=== PATIENT | female | born 1950 | race Caucasian/White ===

== ENCOUNTER → 2018-06-25 07:50 | Outpatient (CLI) | payer OTHER, SELFPAY ==
--- NOTE | 2018-06-25 | DI.MG.S_ITS ---
BILATERAL DIGITAL SCREENING MAMMOGRAM 3D/2D WITH CAD: 06/25/2018 CLINICAL: Routine screening. Family history of breast cancer. Comparison is made to exams dated: 07/13/2016 mammogram, 07/11/2013 mammogram, and 12/15/2009 mammogram - [facility]. There are scattered fibroglandular elements in both breasts. Current study was also evaluated with a Computer Aided Detection (CAD) system. No significant masses, calcifications, or other findings are seen in either breast. There has been no significant interval change. IMPRESSION: NEGATIVE There is no mammographic evidence of malignancy. A 1 year screening mammogram is recommended. This exam was interpreted at Station ID: [id number]. NOTE: For mammograms, a report in lay terms will be sent to the patient. Approximately 15% of breast malignancies will not be visualized mammographically. In the management of a palpable breast mass, a negative mammogram must not discourage biopsy of a clinically suspicious lesion. Electronically Signed By: Doris moreland/sarika:06/26/2018 09:44:15 letter sent: Normal Exam ACR BI-RADS Category 1: Negative 3341F
== END ==
PROVIDERS: Family Provider Family Medicine; PCP Family Medicine; Visit Provider Family Medicine
DX: Z12.31 Encounter for screening mammogram for malignant neoplasm of breast (principal); Z80.3 Family history of malignant neoplasm of breast
CPT/HCPCS: 77063; 77067

== ENCOUNTER → 2019-08-14 09:36 | Outpatient (CLI) | payer OTHER, SELFPAY | PROVIDERS: Family Provider Family Medicine; PCP Family Medicine; Referring Provider Family Medicine; Visit Provider Family Medicine | DX: M85.851 Other specified disorders of bone density and structure, right thigh (principal); Z78.0 Asymptomatic menopausal state; Z87.891 Personal history of nicotine dependence | CPT/HCPCS: 77080 ==

== ENCOUNTER → 2020-01-07 06:48 | Outpatient (CLI) | payer OTHER, SELFPAY | PROVIDERS: Family Provider Family Medicine; PCP Family Medicine; Referring Provider Family Medicine; Visit Provider Family Medicine | DX: I34.0 Nonrheumatic mitral (valve) insufficiency (principal); I77.89 Other specified disorders of arteries and arterioles | CPT/HCPCS: 93306 ==

== ENCOUNTER → 2020-06-27 08:00 | Outpatient (CLI) | payer OTHER, SELFPAY ==
--- NOTE | 2020-06-27 | DI.MG.S_ITS ---
BILATERAL DIGITAL SCREENING MAMMOGRAM 3D/2D WITH CAD: 06/27/2020 CLINICAL: Routine screening. Family history of breast cancer. Comparison is made to exams dated: 06/25/2018 mammogram, 07/13/2016 mammogram, and 07/11/2013 mammogram - [facility]. There are scattered fibroglandular elements in both breasts. Current study was also evaluated with a Computer Aided Detection (CAD) system. No significant masses, calcifications, or other findings are seen in either breast. There has been no significant interval change. IMPRESSION: NEGATIVE There is no mammographic evidence of malignancy. A 1 year screening mammogram is recommended. This exam was interpreted at Station ID: [id number]. NOTE: For mammograms, a report in lay terms will be sent to the patient. Approximately 15% of breast malignancies will not be visualized mammographically. In the management of a palpable breast mass, a negative mammogram must not discourage biopsy of a clinically suspicious lesion. Electronically Signed By: Luke coto/sarika:06/29/2020 07:13:34 letter sent: Normal Exam ACR BI-RADS Category 1: Negative 3341F
== END ==
PROVIDERS: Family Provider Family Medicine; PCP Family Medicine; Referring Provider Family Medicine; Visit Provider Family Medicine
DX: Z12.31 Encounter for screening mammogram for malignant neoplasm of breast (principal); Z80.3 Family history of malignant neoplasm of breast
CPT/HCPCS: 77063; 77067

== ENCOUNTER → 2020-12-02 09:39 | Outpatient (CLI) | payer OTHER, SELFPAY ==
[2020-12-02 12:12] LABS: COVID19 -Nasal RAPID Negative (Negative)
== END ==
PROVIDERS: Family Provider Family Medicine; PCP Family Medicine; Visit Provider Physician Assistant
DX: Z01.812 Encounter for preprocedural laboratory examination (principal); Z20.822 Contact with and (suspected) exposure to COVID-19
CPT/HCPCS: 87635

== ENCOUNTER 2020-12-03 09:00 | Day surgery (SDC) | payer OTHER, SELFPAY ==
--- NOTE | 2020-12-03 | PATH_ITS ---
[facility] Accession Number: [id number] . 01 Material submitted: . PART A: colon - CECAL POLYP PART B: rectum - RECTAL POLYP 15 CM PART C: rectum - RECTAL POLYP 5 CM . 01 Clinical history: . SCREENING COLONOSCOPY . 02 Diagnosis: A. Cecal Polyp, Biopsy: Tubular adenoma. . B. Rectal Polyp at 15 cm, Biopsy: Hyperplastic polyp. . C. Rectal Polyp at 5 cm, Biopsy: Tubular adenoma. MRV 12/09/2020 1320 Local . 02 Electronically signed: . Ryland Dozier MD, PhD, Pathologist NPI- [id number] . 01 Gross description: . A. Specimen A is received in formalin labeled cecal polyp and consists of a 0.3 x 0.3 x 0.2 cm alfonso-pink fragment of soft tissue, which is entirely submitted in cassette A1. B. Specimen B is received in formalin labeled rectal polyp 15 cm and consists of two alfonso-pink fragments of soft tissue, measuring 0.5 x 0.4 x 0.2 cm in aggregate. The specimen is entirely submitted in cassette B1. C. Specimen C is received in formalin labeled rectal polyp 5 cm and consists of a 0.5 x 0.5 x 0.3 cm alfonso-pink fragment of soft tissue, which is entirely submitted in cassette C1. (EA:[id number]) /[facility] 12/04/2020 1651 Local . 02 Pathologist provided ICD-10: D12.0, D12.8 . 02 CPT . 744083, 562463, 400416 Performed at: 01 [facility] [address] [place] [address] [address], [place], [place] [id number] MD Robert Espinosa MD Phone: [phone] Performed at: 02 [facility] [place] [address] [place] [id number] MD Debi Montemayor MD Phone: [phone]
[2020-12-03 09:24] VITALS: BP 155/86; PULSE 74; RESP 14; TEMP 36.6; O2SAT 93; BMI 27.3
--- NOTE | 2020-12-03 09:57 | P.HP_ITS ---
History of Present Illness History of Present Illness Date Patient Seen: 12/03/20 Time Patient Seen: 09:58 Chief complaint: SCREENING COLONOSCOPY Narrative: This is a 70-year-old woman with personal history of colon polyps, and family history of colon cancer in her mother who was diagnosed in her 50s. The patient denies any current symptoms of melena, hematochezia, unexplained abdominal pain, unexplained weight loss. Her last colonoscopy was in 2016, during which just hyperplastic polyps were found. On the colonoscopy prior to that one she had adenomatous polyps per the notes. She is here for follow-up surveillance colonoscopy. ROS [facility] system review is otherwise negative other than as mentioned below and in HPI. PE GENERAL: Well groomed and cooperative. Appears stated age. Answers questions promptly and appropriately. Vital signs noted. HENT: Normocephalic, atraumatic. Hearing intact. EYES: Conjunctiva pink, sclera white, no periorbital swelling. CARDIOVASCULAR: Regular rate. No pedal edema. RESPIRATORY: Non-tachypneic, breathing comfortably on room air. GASTROINTESTINAL: Abdomen soft and non-distended GENITALURINARY: No flank tenderness. MUSCULOSKELETAL: Equal tone and mass bilaterally. SKIN: Warm, dry, soft, appropriate color for ethnicity. No other lesions, rashes, or wounds. NEURO: Alert and Oriented X 3. No gross sensory deficits, or cognitive issues. PSYCH: Appropriate affect and mood. Patient History Medical History Hypercholesteremia Hypertension Family & Social History Social History: household members spouse Tobacco & Substance use: Smoking Status Former smoker alcohol intake current alcohol intake frequency 0-2 drinks per day Substance Use Type does not use Meds Home Medications and Allergies Home Medications Medication Instructions Recorded Confirmed Type atorvastatin 20 mg PO DAILY 12/03/20 12/03/20 History hydrochlorothiazide 25 mg PO DAILY 12/03/20 12/03/20 History losartan 100 mg PO DAILY 12/03/20 12/03/20 History metoprolol succinate 100 mg PO DAILY 12/03/20 12/03/20 History potassium chloride 10 meq PO DAILY 12/03/20 12/03/20 History Allergies Allergy/AdvReac Type Severity Reaction Status Date / Time cephalexin [From Keflex] Allergy Rash Verified 12/03/20 09:17 Exam Vital Signs (past 8 hours): - 12/03/20 09:24 Temperature 97.9 F Pulse Rate 74 Respiratory Rate 14 Blood Pressure 155/86 H Pulse Oximetry 93 Oxygen Delivery Method Room Air Assessment & Plan Assessment and plan (1) Family history of colon cancer in mother: Status: Acute (2) Personal history of colonic polyps: Status: Acute Assessment & Plan narrative: Risks and benefits of screening colonoscopy and possible polypectomy were discussed with the patient including risk of bleeding, perforation, need for additional procedures, risks of anesthesia. The patient desires to proceed with the colonoscopy procedure. COVID-19 COVID-19 status: Negative Result date/Date tested (Pos, Neg/Pending): 12/02/20 Time Spent With Patient Time with patient: 15-24 minutes Quality VTE Deep Vein Thrombosis/Pulmonary Embolism Present on Admission: No
[2020-12-03] MEDS: MIDAZOLAM 5 MG/5 ML VIAL IV (10:28)
[2020-12-03] MEDS: fentaNYL 250 MCG/5 ML INJ IV (10:28)
--- NOTE | 2020-12-03 10:49 | P.OP.ENDO_ITS ---
Operative Date/Time/Diagnoses Date of procedure: 12/03/20 Time of procedure: 10:49 Pre-op diagnosis: Personal history of colon polyps, family history of colon cancer in a primary relative Post-op diagnosis: other (3 polyps) Procedure & Clinicians Study performed: Colonoscopy Procedural sedation performed by the endoscopist Polypectomy with Jumbo forceps x2 Polypectomy with cold snare x1 Same procedure as scheduled: Yes Indications: Personal history colon polyps, family history colon cancer in a primary relative Surgeon: Felicitas Lira Procedure Notes SCOAP/Timeout: Performed Procedure in detail: The patient was brought to the room and placed in left lateral decubitus position with all bony prominences padded. A time-out was performed and then the patient was given procedural sedation starting with 4 mg of Versed and 100 mcg of fentanyl. Vitals were monitored throughout the procedure and remained stable. Once adequately sedated, the procedure was begun. A rectal exam was performed revealing no abnormalities. The colonoscope was then introduced to the rectum and advanced to the cecum in the usual fashion. The cecum was identified by the appendiceal orifice, the mucosal tri- fold, and the ileocecal valve. The scope was then retracted while rotating side to side and examining each mucosal fold. Pre polyps were found. One in the cecum, 1 in the rectum at 15 cm, and 1 in the rectum at 5 cm. At the conclusion of the procedure retroflexion was performed and small grade 1-2 internal hemorrhoids without stigmata of bleeding were seen. The scope was then withdrawn from the rectum the procedure was concluded. The patient tolerated the procedure well and was transferred to the PACU in stable condition. Total of 8 mg of Versed and 200 micro g of fentanyl were given for the entire procedure. Scope withdrawal time: 15 Findings: polyp Specimen(s): other (Polyps) Complications: none Impression: 2 adenomatous appearing polyps, 1 hyperplastic appearing polyp Post-procedure Recommendations: Colonscopy in 3 years (Due to personal or family history, and new polyps found on this exam today) Follow up: as needed Disposition: PACU
[2020-12-03 10:54] VITALS: BP 99/57; PULSE 64; RESP 10; TEMP 36.3; O2SAT 93
[2020-12-03 10:59] VITALS: BP 96/54; PULSE 68; RESP 16; O2SAT 94
[2020-12-03 11:04] VITALS: BP 100/54; PULSE 69; RESP 15; O2SAT 98
[2020-12-03 11:08] VITALS: BP 100/52; PULSE 65; RESP 12; TEMP 36.5; O2SAT 97
[2020-12-03 11:13] VITALS: BP 100/64; PULSE 65; RESP 11; TEMP 36.4; O2SAT 96
== END 2020-12-03 11:35 | disposition home or self-care (01) ==
PROVIDERS: Family Provider Family Medicine; PCP Family Medicine; Referring Provider Surgery; Visit Provider Surgery
PROC: 0DJD8ZZ Inspection of Lower Intestinal Tract, Via Natural or Artificial Opening Endoscopic (ICD-10-PCS; CPT 45378; principal; 2020-12-03 10:00)
DX: Z12.11 Encounter for screening for malignant neoplasm of colon (principal); Z86.010 Personal history of colon polyps; Z80.0 Family history of malignant neoplasm of digestive organs; E78.00 Pure hypercholesterolemia, unspecified; I10 Essential (primary) hypertension; K64.0 First degree hemorrhoids; D12.0 Benign neoplasm of cecum; D12.8 Benign neoplasm of rectum
CPT/HCPCS: 45385; 45380; J2250; J3010

== ENCOUNTER → 2021-08-17 10:07 | Outpatient (CLI) | payer OTHER, SELFPAY | PROVIDERS: Family Provider Family Medicine; PCP Family Medicine; Referring Provider Family Medicine; Visit Provider Family Medicine | DX: Z78.0 Asymptomatic menopausal state (principal); M85.851 Other specified disorders of bone density and structure, right thigh; Z87.891 Personal history of nicotine dependence | CPT/HCPCS: 77080 ==

== ENCOUNTER → 2021-09-16 09:05 | Outpatient (CLI) | payer OTHER, SELFPAY ==
--- NOTE | 2021-09-16 | DI.MG.S_ITS ---
BILATERAL DIGITAL SCREENING MAMMOGRAM 3D/2D WITH CAD: 09/16/2021 CLINICAL: Routine screening. Family history of breast cancer. Comparison is made to exams dated: 06/27/2020 mammogram, 06/25/2018 mammogram, 07/13/2016 mammogram, and 07/11/2013 mammogram - [facility]. There are scattered fibroglandular elements in both breasts. Current study was also evaluated with a Computer Aided Detection (CAD) system. No significant masses, calcifications, or other findings are seen in either breast. There has been no significant interval change. IMPRESSION: NEGATIVE There is no mammographic evidence of malignancy. A 1 year screening mammogram is recommended. This exam was interpreted at Station ID: [id number]. NOTE: For mammograms, a report in lay terms will be sent to the patient. Approximately 15% of breast malignancies will not be visualized mammographically. In the management of a palpable breast mass, a negative mammogram must not discourage biopsy of a clinically suspicious lesion. Electronically Signed By: Fredy griffiths/sarika:09/16/2021 10:15:59 letter sent: Normal Exam ACR BI-RADS Category 1: Negative 3341F
== END ==
PROVIDERS: Family Provider Family Medicine; PCP Family Medicine; Referring Provider Family Medicine; Visit Provider Family Medicine
DX: Z12.31 Encounter for screening mammogram for malignant neoplasm of breast (principal); Z80.3 Family history of malignant neoplasm of breast
CPT/HCPCS: 77063; 77067

== ENCOUNTER → 2021-10-14 09:18 | Outpatient (CLI) | payer OTHER, SELFPAY ==
--- NOTE | 2021-10-14 | DI.ECHO.S_ITS ---
[place] [facility]---------+ [facility] +---------+ : : [address] : : : : [id number] : : : : Phone: [phone]+ Echocardiogram Report + + :Name: FANNY GROVE Study Date: 10/14/2021 Height: 69 in : :[facility] ReadingLocation: Weight: 190 lb : : Gender: Female BSA: 2.0 m2 : :: 1950 Age: 71 yrs BP: 134/77 mmHg: :Reason For Study: MITRAL INSUFFICIENCY : :Ordering Physician: SALEEM, : :SORAYA Performed By: Bernadine Qureshi : :Referring: SORAYA MONGE : + + Interpretation Summary 1) Normal left ventricular thickness, size, wall motion, and systolic function (EF 55-60%). 2) Normal right ventricular size and function. 3) There is mild mitral regurgitation. 4) Compared to the Echo done 01/07/2020, no significant change. Procedure: A two-dimensional transthoracic echocardiogram with color flow and Doppler was performed. The study quality was technically adequate. Comparison is made with the echocardiogram of 01/07/2020. The patient was in sinus rhythm with heart rates between 61-70 bpm during the exam. Left Ventricle: The left ventricle is normal in size and wall thickness. The ejection fraction is estimated to be 55-60%. Left ventricular systolic function appears normal without focal wall motion abnormalities. Right Ventricle: The right ventricle is normal in size and function. Atria: The left atrium is severely dilated. Right atrial size is normal. Chiari network (normal variant) is noted. There is no Doppler evidence for an interatrial shunt. Mitral Valve: There is mild to moderate mitral annular calcification. The mitral valve is normal in structure and function. There is mild mitral regurgitation. Aortic Valve: The aortic valve is trileaflet. The aortic valve opens well. There is no aortic valve stenosis. There is trace aortic regurgitation. Tricuspid Valve: The tricuspid valve is normal in structure and function. No tricuspid regurgitation. Pulmonary artery pressures cannot be estimated because of the lack of a measurable TR jet velocity but the IVC suggests a CVP of around 3 mmHg. Pulmonic Valve: The pulmonic valve leaflets are thin and pliable; valve motion is normal. There is trace pulmonic regurgitation. Great Vessels: The aortic root is normal size. The ascending aorta is at the upper limits of normal in size. The IVC is of normal diameter and collapses greater than 50% with a sniff. This suggests a low right atrial pressure of 3 mm Hg. Pericardium/ Pleura There is no pericardial effusion. There is no pleural effusion. MMode/2D Measurements & Calculations LVIDd: 4.9 cm LVOT diam: 2.0 cm LVIDs: 3.1 cm Ao root diam: 2.9 cm FS: 36.7 % asc Aorta Diam: 3.7 cm IVSd: 0.95 cm Ao Arch Diam (Prox Trans): 2.8 cm LVPWd: 1.1 cm LV melendez. diameter/BSA (cm/m^2): 2.4 LV sys. diameter/BSA (cm/m^2): 1.5 LA A2 area: 29.3 cm2 RA long axis: 5.6 cm LA A4 area: 25.2 cm2 RA area: 19.9 cm2 LA length (vol): 6.0 cm RA vol: 60.0 ml LA vol: 105.1 ml RA : 29.7 ml/m2 LA vol index: 52.0 ml/m2 IVC diam: 1.6 cm RVD1 (basal): 3.7 cm RVD2 (mid): 3.1 cm TAPSE: 2.8 cm Doppler Measurements & Calculations Ao V2 max: 155.4 cm/sec LVOT Max Ron: 132.3 cm/sec Ao V2 mean: 96.0 cm/sec LV V1 max P.0 mmHg Ao max P.7 mmHg LV V1 VTI: 27.8 cm Ao mean P.2 mmHg SRIDHAR(I,D): 2.9 cm2 Ao V2 VTI: 30.7 cm SRIDHAR(V,D): 2.7 cm2 sev ratio: 0.90 SRIDHAR indexed to BSA (cm^2/m^2): 1.4 MV E max ron: 90.1 cm/sec PA V2 max: 106.5 cm/sec MV A max ron: 110.2 cm/sec PA V2 mean: 68.1 cm/sec MV E/A: 0.82 PA mean P.1 mmHg Med Peak E' Ron: 7.2 cm/sec PA pr(Accel): 27.6 mmHg E/E' med: 12.5 Lat Peak E' Ron: 7.4 cm/sec E/E' lat: 12.1 E/e' average: 12.3 MV dec time: 0.22 sec MVA(VTI): 2.2 cm2 MV V2 mean: 60.5 cm/sec SV(LVOT): 87.6 ml MV mean P.7 mmHg MV V2 VTI: 39.4 cm Reading Physician:12:13 PM
== END ==
PROVIDERS: Family Provider Family Medicine; PCP Family Medicine; Referring Provider Family Medicine; Visit Provider Family Medicine
DX: I34.0 Nonrheumatic mitral (valve) insufficiency (principal)
CPT/HCPCS: 93306

== ENCOUNTER → 2022-07-18 11:39 | Outpatient (CLI) | payer OTHER, SELFPAY ==
--- NOTE | 2022-07-18 | DI.RAD.S_ITS ---
PROCEDURE: XR KNEE LT 3V INDICATIONS: LEFT KNEE PAIN TECHNIQUE: 3 views of the knee were acquired. COMPARISON: None. FINDINGS: Bones: No acute fractures or dislocations. No suspicious bony lesions. Moderate joint space narrowing is seen at the lateral portion of the patellofemoral compartment. There is mild joint space narrowing at the lateral femorotibial compartment possible minimal medial compartment narrowing. Tricompartmental marginal osteophytes are present. Soft tissues: Trace joint effusion. No suspicious soft tissue calcifications. 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 Approved by: Lucian Noguera M.D. on 07/18/2022 at 13:31
== END ==
PROVIDERS: Family Provider Family Medicine; PCP Family Medicine; Referring Provider Family Medicine; Visit Provider Family Medicine
DX: M25.562 Pain in left knee (principal); M17.12 Unilateral primary osteoarthritis, left knee
CPT/HCPCS: 73562

== ENCOUNTER → 2022-11-04 07:43 | Outpatient (CLI) | payer OTHER, SELFPAY ==
--- NOTE | 2022-11-04 | DI.MG.S_ITS ---
BILATERAL DIGITAL SCREENING MAMMOGRAM 3D/2D WITH CAD: 11/04/2022 CLINICAL: Routine screening. Family history of breast cancer. Comparison is made to exams dated: 09/16/2021 mammogram, 06/27/2020 mammogram, 06/25/2018 mammogram, and 07/13/2016 mammogram - [facility]. There are scattered areas of fibroglandular density in both breasts (category b / 25%-50% glandular tissue). Current study was also evaluated with a Computer Aided Detection (CAD) system. No significant masses, calcifications, or other findings are seen in either breast. There has been no significant interval change. IMPRESSION: NEGATIVE There is no mammographic evidence of malignancy. A 1 year screening mammogram is recommended. Based on the Tyrer Cuzick model (a risk assessment model) the patient's lifetime risk is 11.4% and her 10 year risk is 7.8%. According to the ACR, ACS, and NCCN guidelines, an annual breast MRI exam along with mammogram is recommended if the patient's lifetime risk is 20% or greater. This exam was interpreted at Station ID: [id number]. NOTE: For mammograms, a report in lay terms will be sent to the patient. Approximately 15% of breast malignancies will not be visualized mammographically. In the management of a palpable breast mass, a negative mammogram must not discourage biopsy of a clinically suspicious lesion. Electronically Signed By: Doris moreland/sarika:11/04/2022 16:28:56 letter sent: Normal Exam ACR BI-RADS Category 1: Negative 3341F
--- NOTE | 2022-11-04 | DI.MRI.S_ITS ---
PROCEDURE: MR KNEE LT WO CON INDICATIONS: Pain in left knee TECHNIQUE: Noncontrast sagittal PD fast spin echo and T2 fast spin echo with fat saturation, sagittal 3-D FLASH with fat saturation; coronal T1 spin echo and PD fast spin echo with fat saturation, and axial PD fast spin echo with fat saturation through the knee. COMPARISON: [facility], CR, XR KNEE LT 3V, 07/18/2022, 11:46. FINDINGS: Image quality: Excellent. Menisci: Medial meniscal extrusion. There is horizontal tear of the medial meniscus involving the body and posterior horn. There is also tear of the free edge of the medial meniscus involving the body and posterior. Complex degenerative tear of the anterior horn of the lateral meniscus. The meniscal root ligaments appear intact. Cruciate ligaments: The anterior and posterior cruciate ligaments appear intact. There is mild mucoid degeneration of ACL. Medial structures: The medial collateral ligament appears intact. The semimembranosus tendon insertions and meniscocapsular junction appear intact. Visualized portions of the pes anserinus tendons appear normal. No abnormal bursal fluid. Lateral structures: The lateral collateral ligament, long and short heads of the biceps femoris tendon appear intact. The popliteus tendon appears normal. Iliotibial band appears normal. Anterior structures: The quadriceps and patellar tendons appear intact. There is low-grade quadriceps tendinitis and patellar tendinitis. Patellar alignment is normal. No femoral trochlear dysplasia or ventral trochlear prominence. No edema in the infrapatellar fat pad. Bones and cartilage: No bone marrow contusions or fractures. There is moderate tricompartmental cartilage thinning and fibrillation, most pronounced in the medial femorotibial compartment. Joint space: There is moderate knee joint effusion. There is a large complex Fernandez's cyst measuring 3.0 x 3.7 x 9 point cm. There is a 1.2 x 0.6 cm cyst in the posterior aspect of the intercondylar notch adjacent to the ACL and PCL, most likely a ganglion cyst. Probably synovial cyst in posterior superior knee joint. Normal appearing synovial plicae are incidentally noted. IMPRESSION: 1. Medial meniscal tear. 2. Lateral meniscal tear. 3. 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 4. A large complex Fernandez cyst. 5. Moderate knee joint effusion. Dictated by: Ari Shirley M.D. on 11/04/2022 at 9:05 Approved by: Ari Shirley M.D. on 11/04/2022 at 9:14
== END ==
PROVIDERS: Family Provider Family Medicine; PCP Family Medicine; Referring Provider Family Medicine; Visit Provider Family Medicine
DX: Z12.31 Encounter for screening mammogram for malignant neoplasm of breast (principal); S83.272A Complex tear of lateral meniscus, current injury, left knee, initial encounter; Z80.3 Family history of malignant neoplasm of breast; S83.242A Other tear of medial meniscus, current injury, left knee, initial encounter; M71.22 Synovial cyst of popliteal space [Baker], left knee; M25.562 Pain in left knee; M25.462 Effusion, left knee
CPT/HCPCS: 73721; 77063; 77067

== ENCOUNTER → 2023-07-06 08:02 | Outpatient (CLI) | payer OTHER, SELFPAY ==
--- NOTE | 2023-07-06 | DI.ECHO.S_ITS ---
[place] +---------+ [facility] +---------+ : : [address] : [address] : : : : [id number] : : : : Phone: [phone]+ Echocardiogram Report + + :Name: FANNY GROVE Study Date: 07/06/2023 Height: 68.5 in: :[facility] ReadingLocation: Weight: 190 lb : : Gender: Female BSA: 2.0 m2 : :: 1950 Age: 73 yrs BP: 147/89 mmHg: :Reason For Study: MITRAL INSUFFICIENCY : :Ordering Physician: SALEEM, : :SORAYA Performed By: Bernadine Qureshi : :Referring: SORAYA MONGE : + + Interpretation Summary 1) Normal left ventricular thickness, size, wall motion, and systolic function (EF 55-60%). 2) Upper normal right ventricular size with normal function. 3) There is mild mitral regurgitation. 4) Compared to the Echo done 10/14/2021, no significant change. Procedure: A two-dimensional transthoracic echocardiogram with color flow and Doppler was performed. The study quality was technically adequate. Comparison is made with the echocardiogram of 10/14/2021. The patient was in sinus bradycardia with heart rates between 48-54 bpm during the exam. Left Ventricle: The left ventricle is normal in size and wall thickness. The ejection fraction is estimated to be 55-60%. Left ventricular systolic function appears normal without focal wall motion abnormalities. Diastolic parameters suggest a pseudonormalization pattern, consistent with probable elevated filling pressures. Right Ventricle: The right ventricle is at the upper limits of normal in size. The right ventricular systolic function is normal. Atria: The left atrium is moderately dilated. Right atrial size is normal. There is no Doppler evidence for an interatrial shunt. Mitral Valve: There is moderate mitral annular calcification. The mitral valve leaflets are mildly calcified. The mitral valve mean gradient is 1.9 mmHg. There is mild mitral regurgitation. Aortic Valve: The aortic valve is trileaflet. The aortic valve opens well. There is no aortic valve stenosis. There is trace aortic regurgitation. Tricuspid Valve: The tricuspid valve is normal in structure and function. There is trace tricuspid regurgitation. Pulmonary artery pressures cannot be estimated because of the lack of a measurable TR jet velocity. Pulmonic Valve: The pulmonic valve leaflets are thin and pliable; valve motion is normal. There is a trace or physiologic amount of pulmonic regurgitation. Great Vessels: The aortic root is normal size. The dimensions of the ascending aorta are normal. The IVC is of normal diameter and collapses greater than 50% with a sniff. This suggests a low right atrial pressure of 3 mm Hg. Pericardium/ Pleura There is no pericardial effusion. There is no pleural effusion. MMode/2D Measurements & Calculations LVIDd: 5.0 cm LVOT diam: 2.0 cm LVIDs: 3.4 cm Ao root diam: 3.4 cm FS: 31.0 % asc Aorta Diam: 3.9 cm EPSS: 0.81 cm Ao Arch Diam (Prox Trans): 2.7 cm IVSd: 1.1 cm LVPWd: 0.80 cm LV melendez. diameter/BSA (cm/m^2): 2.5 LV sys. diameter/BSA (cm/m^2): 1.7 LA A2 area: 25.9 cm2 RA long axis: 5.4 cm LA A4 area: 23.4 cm2 RA area: 18.4 cm2 LA length (vol): 5.6 cm RA vol: 53.5 ml LA vol: 92.8 ml RA : 26.6 ml/m2 LA vol index: 46.1 ml/m2 IVC diam: 1.7 cm RVD1 (basal): 4.0 cm RVD2 (mid): 3.4 cm TAPSE: 2.8 cm Doppler Measurements & Calculations Ao V2 max: 143.9 cm/sec LVOT Max Ron: 109.5 cm/sec Ao V2 mean: 100.4 cm/sec LV V1 max P.8 mmHg Ao max P.3 mmHg LV V1 VTI: 24.7 cm Ao mean P.4 mmHg SRIDHAR(I,D): 2.2 cm2 Ao V2 VTI: 34.8 cm SRIDHAR(V,D): 2.3 cm2 sev ratio: 0.71 SRIDHAR indexed to BSA (cm^2/m^2): 1.1 MV E max ron: 85.8 cm/sec PA V2 max: 87.5 cm/sec MV A max ron: 107.5 cm/sec PA V2 mean: 66.2 cm/sec MV E/A: 0.80 PA mean P.9 mmHg Med Peak E' Ron: 5.0 cm/sec PA pr(Accel): 25.9 mmHg E/E' med: 17.1 Lat Peak E' Ron: 7.4 cm/sec E/E' lat: 11.6 E/e' average: 14.4 MV dec time: 0.27 sec MVA(VTI): 1.9 cm2 MV V2 mean: 64.5 cm/sec SV(LVOT): 76.1 ml MV mean P.9 mmHg MV V2 VTI: 41.0 cm Reading Physician:09:34 AM
== END ==
PROVIDERS: Family Provider Family Medicine; PCP Family Medicine; Referring Provider Family Medicine; Visit Provider Family Medicine
DX: I34.81 Nonrheumatic mitral (valve) annulus calcification (principal); I34.0 Nonrheumatic mitral (valve) insufficiency; I10 Essential (primary) hypertension
CPT/HCPCS: 93306

== ENCOUNTER → 2023-08-18 09:48 | Outpatient (CLI) | payer OTHER, SELFPAY ==
--- NOTE | 2023-08-18 10:09 | DI.DEXA.S_ITS ---
Bone Density Report Name: FANNY GROVE Age: 73 Sex: Female Ethnicity: White Date of : 1950 Indication: postmenopausal; screening for osteoporosis; Referring Provider: SORAYA MONGE Study: Bone densitometry was performed. Exam Date: August 18, 2023 Accession number: [id number] Bone Density: Region BMD T-score Z-score Classification AP Spine(L1-L4) 1.074 0.2 2.5 Normal Femoral Neck (Left) 0.681 -1.5 0.4 Osteopenia Total Hip (Left) 0.847 -0.8 0.9 Normal Femoral Neck (Right) 0.632 -2.0 0.0 Osteopenia Total Hip (Right) 0.819 -1.0 0.6 Normal Total Hip Mean 0.833 -0.9 0.8 Normal World Health Organization criteria for BMD impression classify patients as: Normal (T-score at or above -1.0), Osteopenia (T-score between -1.0 and -2.5), or Osteoporosis (T-score at or below -2.5). 10-year Fracture Risk(1): Major Osteoporotic Fracture 12% Hip Fracture 2.5% Reported Risk Factors: [place] (), Neck BMD=0.632, BMI=28.9 (1) FRAX(R) Version 3.08. Fracture probability calculated for an untreated patient. Fracture probability may be lower if the patient has received treatment. Previous Exams: -- Region Exam Age BMD T-score BMD Change BMD Change Date g/cm2 vs Baseline vs Previous -- AP Spine (L1-L4) 08/18/2023 73 1.074 0.2 -0.028 (-2.6%)# -0.033 (-3.0%)# 08/17/2021 71 1.107 0.5 0.004 (0.4%) 0.051 (4.8%)* 08/14/2019 69 1.056 0.1 -0.047 (-4.2%)* -0.035 (-3.2%)* 05/29/2017 67 1.091 0.4 -0.011 (-1.0%) -0.090 (-7.6%)* 12/15/2009 59 1.181 1.2 0.079 (7.1%)* 0.079 (7.1%)* 07/28/2005 55 1.103 0.5 Total Hip(Left) 08/18/2023 73 0.847 -0.8 -0.103 (-10.9%)# -0.043 (-4.8%)# 08/17/2021 71 0.890 -0.4 -0.060 (-6.4%)* -0.045 (-4.8%)* 08/14/2019 69 0.934 -0.1 -0.016 (-1.7%) 0.007 (0.7%) 05/29/2017 67 0.928 -0.1 -0.022 (-2.4%) -0.036 (-3.7%)* 12/15/2009 59 0.964 0.2 0.014 (1.4%) 0.014 (1.4%) 07/28/2005 55 0.950 0.1 Total Hip(Right) 08/18/2023 73 0.819 -1.0 -0.127 (-13.4%)# -0.101 (-11.0%)# 08/17/2021 71 0.920 -0.2 -0.025 (-2.7%) 0.003 (0.3%) 08/14/2019 69 0.917 -0.2 -0.028 (-3.0%)* -0.015 (-1.6%) 05/29/2017 67 0.932 -0.1 -0.013 (-1.4%) -0.038 (-3.9%)* 12/15/2009 59 0.970 0.2 0.025 (2.6%) 0.025 (2.6%) 07/28/2005 55 0.946 0.0 -- *Denotes significance at 95% confidence level, LSC for AP Spine = 0.022 g/cm2, LSC for Total Hip = 0.027 g/cm2 # Denotes dissimilar scan types or analysis methods Impression: The patient has low bone mass, based on the Right Femoral Neck T-score. The patient has an estimated ten-year risk of hip fracture of 2.5% and an estimated ten-year risk of major fracture of 12%, based on the WHO FRAX algorithm. No significant bone loss was observed. Discussion: BONE DENSITY IS LOW AT ONE OR MORE SKELETAL SITES. This patient's lowest T-score is low at one or more skeletal sites. It meets the World Health Organization's (WHO) criteria for ?low bone mass? (T-score between -1.0 and -2.5). The patient's 10-year risk of fracture as calculated by FRAX is less than the threshold where pharmacological therapy is recommended by the National Osteoporosis Foundation (NOF). However, all treatment decisions require clinical judgment and consideration of individual patient factors, including patient preferences, comorbidities, previous drug use, risk factors not captured in the FRAX model (e.g., frailty, falls, vitamin D deficiency, increased bone turnover, interval significant decline in bone density) and possible under or overestimation of fracture risk by FRAX. The patient should follow a healthful lifestyle (good nutrition with adequate calcium and vitamin D, and appropriate weight-bearing exercise). Follow-Up: Consider repeating this study in 2 to 3 years to reassess this patient's status, or sooner if there is some new clinical indication. Reported by: [facility] KAREN KILGORE M.D. on 08/18/2023 10:20:00 AM.
== END ==
PROVIDERS: Family Provider Family Medicine; PCP Family Medicine; Referring Provider Family Medicine; Visit Provider Family Medicine
DX: M81.8 Other osteoporosis without current pathological fracture (principal); I10 Essential (primary) hypertension; I34.0 Nonrheumatic mitral (valve) insufficiency; M25.562 Pain in left knee; G89.29 Other chronic pain; E78.00 Pure hypercholesterolemia, unspecified; Z13.0 Encounter for screening for diseases of the blood and blood-forming organs and certain disorders involving the immune mechanism
CPT/HCPCS: 77080

== ENCOUNTER → 2023-11-30 06:49 | Outpatient (CLI) | payer OTHER, SELFPAY ==
--- NOTE | 2023-11-30 06:50 | DI.CT.S_ITS ---
PROCEDURE: CT ABDOMEN ADRENAL PROTOCOL INDICATIONS: PRIMARY HYPERTENSION TECHNIQUE: Noncontrast 3 mm thick sections acquired from the diaphragms to the iliac crests. After the administration of intravenous contrast, 3 mm thick venous-phase and 15-minute delayed images acquired from the diaphragms to the iliac crests. For radiation dose reduction, the following was used: automated exposure control, adjustment of mA and/or kV according to patient size. COMPARISON: None. FINDINGS: Image quality: Diagnostic Lower chest: Basal atelectasis. Liver: Inferior left lobe cyst. Liver is otherwise unremarkable. Subcentimeter lesions are too small to characterize, usually also cysts or hemangiomas. Gallbladder and biliary system: Unremarkable, nondilated Pancreas: No ductal dilation Spleen: Nonenlarged Adrenals: In the left adrenal, there is a 1.2 cm nodule with absolute washout of 65% and relative washout of 51%. In the right adrenal, there is a 0.7 cm nodule with absolute washout of 63% and relative washout of 40%. Kidneys: Left-sided slightly hyper attenuating cysts. No hydronephrosis. No calcified stones. Vessels and lymph nodes: The main portal vein is patent. No abdominal aortic aneurysm. There are atherosclerotic calcifications. No pathologic lymph nodes by size criteria. Bowel and peritoneum: No bowel obstruction. No pathologic ascites. Body wall: Unremarkable Bones: Degenerative changes. Suspect lower lumbar hemangioma in the vertebral body. IMPRESSION: Bilateral adrenal adenomas. Correlate with laboratory testing to determine functional status. Other findings as above. Dictated by: Iggy Langley M.D. on 11/30/2023 at 8:45 Approved by: Iggy Langley M.D. on 11/30/2023 at 8:51
[2023-11-30 07:25] LABS: Estimated Glomerular Filt Rate > 60 mL/min (>60)
== END ==
PROVIDERS: Radiology Diagnostic Radiology; Family Provider Family Medicine; PCP Family Medicine; Referring Provider Family Medicine; Visit Provider Family Medicine
DX: D35.01 Benign neoplasm of right adrenal gland (principal); I47.10 Supraventricular tachycardia, unspecified; D35.02 Benign neoplasm of left adrenal gland; I1A.0 Resistant hypertension; I10 Essential (primary) hypertension; R79.89 Other specified abnormal findings of blood chemistry
CPT/HCPCS: 36415; 74170; 82565; Q9967